=== PATIENT | female | born 1985 | race Caucasian/White ===

== ENCOUNTER 2017-01-25 20:42 | Emergency (ER) | payer MEDICAID ==
[2017-01-26 00:21] VITALS: BP 143/89
== END 2017-01-26 00:21 | disposition home or self-care (01) ==
LOC: ED 20:42
DX: R51 Headache (principal); H53.149 Visual discomfort, unspecified; R03.0 Elevated blood-pressure reading, without diagnosis of hypertension
CPT/HCPCS: J1885; J2765

== ENCOUNTER 2018-01-08 22:34 | Emergency (ER) | payer MEDICAID ==
[~2018-01-08] VITALS: Ht 165.1 cm; Wt 108.9 kg
[2018-01-08 22:51] VITALS: Ht 165.1 cm; Wt 108.9 kg
[2018-01-09 00:26] VITALS: BP 141/94
== END 2018-01-09 00:26 | disposition home or self-care (01) ==
LOC: ED 22:34
DX: G44.209 Tension-type headache, unspecified, not intractable (principal)
CPT/HCPCS: J1885; Q0164

== ENCOUNTER 2018-01-13 15:59 | Emergency (ER) | payer MEDICAID ==
[~2018-01-13] VITALS: Ht 165.1 cm; Wt 104.3 kg
[2018-01-13 17:08] LABS: CALCIUM 8.8 mg/dL (8.5-10.1); CARBON DIOXIDE 27.7 mmol/L (21-32); CHLORIDE SERUM 103 mmol/L (98-107); CREATININE SERUM 0.6 mg/dL (0.6-1.0); GFR1 > 60 mL/min; GLUCOSE SERUM 99 mg/dL (74-106); POTASSIUM SERUM 3.9 mmol/L (3.5-5.1); SODIUM SERUM 139 mmol/L (136-145)
[2018-01-13 17:12] LABS: BASOPHIL % 0.4 % (0-2); PLATELET COUNT 235 x10^3mcL (130-400); RED CELL DISTRIBUTION WIDTH 13.8 % (11.5-14.5)
[2018-01-13 17:34] VITALS: BP 142/83
== END 2018-01-13 17:51 | disposition home or self-care (01) ==
LOC: ED 15:59
PROVIDERS: Emergency Medicine
DX: G43.909 Migraine, unspecified, not intractable, without status migrainosus (principal); R03.0 Elevated blood-pressure reading, without diagnosis of hypertension
CPT/HCPCS: J1200; J1885; J2765; J7030